=== PATIENT | female | born 1995 | race African-American/Black ===

== ENCOUNTER 2020-04-09 16:06 | Emergency (ER) | payer BC, MEDICAID ==
[~2020-04-09] VITALS: Ht 167.6 cm; Wt 88.0 kg
[~2020-04-09 16:06] MED LIST: IBUP-2028 PO
[2020-04-09] MEDS ORDERED: ACETAMINOPHEN 325MG TABLET PO ONE (17:00)
[2020-04-09 17:23] LABS: BASOPHILS % 0.4 % (0.0-2.0); EOSINOPHILS % 0.4 % (0.0-5.0); HEMATOCRIT. 35.7 % (36.0-48.0); HEMOGLOBIN. 11.3 g/dL (12.0-16.0); LYMPHOCYTES % 12.5 % (20.0-50.0); MEAN CORPUSCULAR HEMOGLOBIN 24.9 pg (28.0-32.0); MEAN CORPUSCULAR VOLUME 78.2 fL (81.0-99.0); MEAN PLATELET VOLUME 9.1 fl (7.4-10.4); MONOCYTES % 6.6 % (2.0-8.0); NEUTROPHILS % 80.1 % (40.0-76.0); PLATELET 291 x1000/uL (130-400); RED BLOOD CELL COUNT 4.56 mill/uL (4.2-5.4); RED CELL DISTRIBUTION WIDTH 19.6 % (11.6-14.6)
[2020-04-09 17:31] LABS: CHLORIDE 104 mEq/L (98-107)
[2020-04-09 17:56] LABS: B-HCG QUANTITATIVE 42887 mIU/mL (<3)
[2020-04-09 19:30] VITALS: BP 99/66
== END 2020-04-09 19:30 | disposition home or self-care (01) ==
LOC: ER 16:06
DX: O23.591 Infection of other part of genital tract in pregnancy, first trimester (principal); Z3A.13 13 weeks gestation of pregnancy
CPT/HCPCS: 36415; 76801; 80053; 81025; 84702; 85025; 86850; 86900; 87210; 93005; 99285